=== PATIENT | male | born 1940 | race Caucasian/White ===

== ENCOUNTER → 2016-11-28 | Outpatient (CLI) | payer MEDICARE ==
[~2016-11-28] MED LIST: AMLO5TAB2 PO; CART180C3 PO; CLAR10CA3 PO; DIGI1TAB PO; E-Z-GAS II EFFERVESCENT PACKET (SODIUM BICARB./CITRIC ACID/SIMETHICONE) As Ordered ONE; E-Z-HD 98% w/w 340GM SUSP BTL As Ordered ONE; E-Z-PAQUE 96% w/w SUSP 176GM BTL As Ordered ONE; ENOX80IN3 SUBQ; FENO48TA2 PO; FINA5TAB2 PO; FISH306C PO; FOLI1TAB4 PO; FURO40TA2 PO; ISOVUE-370 76% 100ML VIAL (Q9967) As Ordered ONE; LEVE1INJ5 SUBQ; METO-398 PO; NOVOINJ3 SUBQ; ROSU40TA PO; WARF-23 PO
--- NOTE | 2016-11-28 09:49 | REP ---
CT NECK WITH CONTRAST: HISTORY: Dysphagia. CONTRAST: Isovue 370, 75 mL. Calcification is present in the right tonsil. This is secondary to previous inflammatory disease. The naso-, rodrigo- and hypopharynx, larynx and subglottic trachea are otherwise normal in appearance. The salivary and thyroid glands are normal in size and density. Small lymph nodes less than 1 cm in size are present in the internal jugular chains, posterior triangles, submandibular and submental areas. Atherosclerotic calcification is present at the carotid bifurcations. Degenerative change is present in the cervical spine. Scarring is present in the lung apices. A calcified granuloma is present in the right lung apex. The visualized sinuses are clear. IMPRESSION: There is no neck mass or adenopathy. Signed by Moses Camejo MD 11/28/2016 09:55 A
--- NOTE | 2016-11-28 14:30 | REP ---
ESOPHAGRAM: The procedure was performed under the direct supervision of Dr. Mo. The images were reviewed with Dr. Mo. A single view PA chest x-ray is submitted as a electric wirer film. There is no change compared to a previous chest x-ray performed on 11/09/2014. Liquid barium and gas-producing granules were given in the erect position as well as liquid barium in the prone oblique positions in order to perform a double contrast esophagram examination. The oral and pharyngeal stages of deglutition are unremarkable. Esophageal transport demonstrates tertiary waves. There is no esophagitis, stricture, mucosal ring or hiatal hernia. There is gastroesophageal reflux demonstrated to the level of the thoracic inlet. IMPRESSION: 1. Esophageal dysmotility. 2. There is gastroesophageal reflux demonstrated to the level of the thoracic inlet. 57 seconds of fluoroscopy time was utilized for this procedure. Reviewed by ANDREW Rodriges 11/28/2016 03:05 PEdited and Signed by Nayan Mo MD 11/28/2016 07:16 P
== END ==
LOC: M RAD 08:05
PROVIDERS: ATTEND Otolaryngology
DX: R13.10 Dysphagia, unspecified (principal); K21.9 Gastro-esophageal reflux disease without esophagitis
CPT/HCPCS: 70491; 74220; Q9967

== ENCOUNTER 2017-01-12 07:20 | Outpatient (CLI) | payer MEDICARE ==
[~2017-01-12] VITALS: Ht 177.8 cm; Wt 94.3 kg
[~2017-01-12 07:20] MED LIST changes: -CLAR10CA3 PO; -E-Z-GAS II EFFERVESCENT PACKET (SODIUM BICARB./CITRIC ACID/SIMETHICONE) As Ordered ONE; -E-Z-HD 98% w/w 340GM SUSP BTL As Ordered ONE; -E-Z-PAQUE 96% w/w SUSP 176GM BTL As Ordered ONE; -FISH306C PO; -ISOVUE-370 76% 100ML VIAL (Q9967) As Ordered ONE; +SIMETHICONE 40MG/0.6ML DROPS 30ML As Ordered ONE
[2017-01-12] MEDS ORDERED: NS 1,000 ML IV ONE (08:15)
[2017-01-12] MEDS ORDERED: FISH306C PO (08:22)
[2017-01-12] MEDS ORDERED: CLAR10CA3 PO (08:22)
[2017-01-12] MEDS ORDERED: PROPOFOL 200 MG/20 ML VIAL As Ordered ONE (08:27)
[2017-01-12] MEDS ORDERED: LIDOCAINE 2% INJ 100 MG/5 ML SDV (FOR ANES.) As Ordered ONE (08:28)
[2017-01-12] MEDS ORDERED: fentaNYL 100 MCG/2 ML INJECTION (J3010) As Ordered ONE (08:28)
--- NOTE | 2017-01-12 08:51 | ROOR ---
Patient Name: Moses Freeman Procedure Date: 01/12/2017 8:29 AM Date of : 1940 Age: 76 Room: [facility] Gender: Male Note Status: Finalized Procedure: Upper GI endoscopy Indications: Dysphagia Providers: Caleb Buck MD Referring MD: [facility] [place] [facility] Provider: Medicines: Monitored Anesthesia Care Complications: No immediate complications. Procedure: Pre-Anesthesia Assessment: - Prior to the procedure, a History and Physical was performed, and patient medications and allergies were reviewed. The patient is competent. The risks and benefits of the procedure and the sedation options and risks were discussed with the patient. All questions were answered and informed consent was obtained. Patient identification and proposed procedure were verified by the physician, the nurse and the anesthesiologist in the procedure room. Mental Status Examination: normal. Airway Examination: normal oropharyngeal airway and neck mobility. Respiratory Examination: clear to auscultation. CV Examination: normal. Prophylactic Antibiotics: The patient does not require prophylactic antibiotics. Prior Anticoagulants: The patient has taken no previous anticoagulant or antiplatelet agents. ASA Grade Assessment: IV - A patient with severe systemic disease that is a constant threat to life. After reviewing the risks and benefits, the patient was deemed in satisfactory condition to undergo the procedure. The anesthesia plan was to use monitored anesthesia care (MAC). Immediately prior to administration of medications, the patient was re-assessed for adequacy to receive sedatives. The heart rate, respiratory rate, oxygen saturations, blood pressure, adequacy of pulmonary ventilation, and response to care were monitored throughout the procedure. The physical status of the patient was re-assessed after the procedure. The Endoscope was introduced through the mouth, and advanced to the second part of duodenum. The upper GI endoscopy was accomplished without difficulty. The patient tolerated the procedure well. Findings: No endoscopic abnormality was evident in the esophagus to explain the patient's complaint of dysphagia. Biopsies were obtained from the proximal and distal esophagus with cold forceps for histology of suspected eosinophilic esophagitis. Verification of patient identification for the specimen was done by the physician and nurse using the patient's name, date and medical record number. Estimated blood loss was minimal. The Z-line was regular and was found 45 cm from the incisors. Multiple dispersed, 5 mm non-bleeding erosions were found in the gastric antrum. There were no stigmata of recent bleeding. Biopsies were taken with a cold forceps for histology. Biopsies were taken with a cold forceps for Helicobacter pylori testing. The duodenal bulb and second portion of the duodenum were normal. Impression: - No endoscopic esophageal abnormality to explain patient's dysphagia. Biopsied. - Z-line regular, 45 cm from the incisors. - Non-bleeding erosive gastropathy. Biopsied. - Normal duodenal bulb and second portion of the duodenum. Recommendation: - Patient has a contact number available for emergencies. The signs and symptoms of potential delayed complications were discussed with the patient. Return to normal activities tomorrow. Written discharge instructions were provided to the patient. - Resume previous diet. - Continue present medications. - Post-Procedure Resumption of Anticoagulants: Restart warfarin tomorrow 2.5 mg PO per protocol to maintain INR per protocol. - Await pathology results. - Return to GI clinic as previously scheduled on 01/18/2017 at 9:00 AM. - Return to primary care physician. Caleb Buck MD Caleb Buck MD 01/12/2017 8:51:03 AM This report has been signed electronically. Number of Addenda: 0 Note Initiated On: 01/12/2017 8:29 AM Estimated Blood Loss: Estimated blood loss was minimal.
[2017-01-12 09:05] VITALS: BP 124/70
== END 2017-01-12 09:38 | disposition home or self-care (01) ==
LOC: M OPP 07:20
PROVIDERS: ATTEND Internal Medicine Gastroenterology
DX: R13.10 Dysphagia, unspecified (principal); K31.89 Other diseases of stomach and duodenum; I48.91 Unspecified atrial fibrillation; Z95.5 Presence of coronary angioplasty implant and graft; I12.9 Hypertensive chronic kidney disease with stage 1 through stage 4 chronic kidney disease, or unspecified chronic kidney disease; E78.5 Hyperlipidemia, unspecified; R94.31 Abnormal electrocardiogram [ECG] [EKG]; R93.3 Abnormal findings on diagnostic imaging of other parts of digestive tract; Z95.0 Presence of cardiac pacemaker; E10.9 Type 1 diabetes mellitus without complications; N18.9 Chronic kidney disease, unspecified; I25.10 Atherosclerotic heart disease of native coronary artery without angina pectoris; R06.02 Shortness of breath; Z79.899 Other long term (current) drug therapy; Z79.01 Long term (current) use of anticoagulants
CPT/HCPCS: 43239; 88305; J3010